=== PATIENT | male | born 1950 | race Caucasian/White ===

== ENCOUNTER 2017-05-09 07:41 | Emergency (ER) | payer MEDICARE ==
[~2017-05-09] VITALS: Ht 185.4 cm; Wt 79.0 kg
[~2017-05-09 07:41] MED LIST: DIAZIDE; LISI-167; OXYC-302
[2017-05-09] MEDS ORDERED: SODIUM CHLORIDE 0.9% 1,000ML IVBOLUS ONE (08:00)
[2017-05-09] MEDS ORDERED: TRIA1CAP PO (08:11)
[2017-05-09] MEDS ORDERED: LISI5TAB7 PO (08:11)
[2017-05-09] MEDS ORDERED: LANS30CA PO (08:11)
[2017-05-09 08:16] LABS: BASOPHILS # (AUTO) 0.01 x10^3/uL (0-0.1); BASOPHILS % (AUTO) 0 % (0-1); EOSINOPHILS # (AUTO) 0.09 x10^3/uL (0-0.4); EOSINOPHILS % (AUTO) 2 % (1-7); LYMPHOCYTES # (AUTO) 0.95 x10^3/uL (1-3.4); LYMPHOCYTES % (AUTO) 17 % (22-44); MD NO; MEAN CORPUSCULAR HEMOGLOBIN 35.9 pg (27.5-34.5); MEAN CORPUSCULAR HGB CONC 34.5 g/dL (33.2-36.2); MEAN CORPUSCULAR VOLUME 103.9 fL (81-97); MEAN PLATELET VOLUME 7.6 fL (7.4-10.4); MONOCYTES # (AUTO) 0.35 x10^3/uL (0.2-0.8); MONOCYTES % (AUTO) 6 % (2-9); NEUTROPHILS # (AUTO) 4.22 x10^3/uL (1.8-6.8); NEUTROPHILS % (AUTO) 75 % (42-75); PLATELET COUNT 223 x10^3/uL (130-400); RED BLOOD COUNT 4.25 x10^6/uL (4.38-5.82); RED CELL DISTRIBUTION WIDTH 13.3 % (9.4-14.8)
[2017-05-09 08:26] LABS: ALANINE AMINOTRANSFERASE 29 U/L (12-78); ALBUMIN 3.8 g/dL (3.4-5.0); ANION GAP 9 mmol/L (5-15); CALCIUM 8.8 mg/dL (8.5-10.1); CHLORIDE 107 mmol/L (98-107); CREATININE 1.33 mg/dL (0.7-1.3)
[2017-05-09 08:30] LABS: ALKALINE PHOSPHATASE 38 U/L (45-117); BILIRUBIN,TOTAL 0.5 mg/dL (0.2-1.0); TOTAL PROTEIN 6.5 g/dL (6.4-8.2); TROPONIN I < 0.015 ng/mL (0.000-0.045)
[2017-05-09] MEDS ORDERED: propanolol PO (08:58)
[2017-05-09] MEDS ORDERED: GADOBUTROL 7.5 MMOL/7.5 ML PFS ONE (09:48)
[2017-05-09 12:32] VITALS: BP 176/106
[2017-05-09] MEDS ORDERED: PROP10TA PO (12:43)
[2017-05-09 12:54] LABS: MICROSCOPIC AUTO
[2017-05-09 12:55] LABS: CULTURE INDICATED? NO
[2017-05-09] MEDS ORDERED: LEVETIRACETAM 1,000 MG in SODIUM CHLORIDE 0.9% 100 ML IV ONE (13:00)
== END 2017-05-09 13:17 | disposition home or self-care (01) ==
LOC: ED 10:30
DX: G40.909 Epilepsy, unspecified, not intractable, without status epilepticus (principal); G37.9 Demyelinating disease of central nervous system, unspecified; I10 Essential (primary) hypertension; I48.91 Unspecified atrial fibrillation
CPT/HCPCS: 36415; 70450; 70553; 80053; 81001; 82140; 84443; 84484; 85025; 93005; 96361; 96374; 99285; A9585; J1953; J7030

== ENCOUNTER → 2017-06-20 | Outpatient (CLI) | payer MEDICARE ==
[~2017-06-20] MED LIST changes: +LANS30CA PO; +LISI5TAB7 PO; +PROP10TA PO; +TRIA1CAP PO; +propanolol PO
== END | disposition home or self-care (01) ==
LOC: CARD 09:02
PROVIDERS: ATTEND Psychiatry & Neurology Neurology
DX: G40.209 Localization-related (focal) (partial) symptomatic epilepsy and epileptic syndromes with complex partial seizures, not intractable, without status epilepticus (principal)
CPT/HCPCS: 95819

== ENCOUNTER 2019-06-12 20:07 | Inpatient (IN) | payer MEDICARE ==
[~2019-06-12] VITALS: Ht 185.4 cm; Wt 78.2 kg
[~2019-06-12 20:07] MED LIST changes: -PROP10TA PO; +PROP10TA16 PO
[2019-06-12] MEDS ORDERED: SODIUM CHLORIDE FLUSH 10ML SYR IVF ONE (20:30)
--- NOTE | 2019-06-12 20:52 | NUR ---
PT TO ROOM 38 PER PEDIS. PT STATES "I'M REALLY WORRIED I MIGHT HAVE HAD A TIA TODAY" PT FELL 10 DAYS AGO, FELL ON RIGHT SIDE, THINKS HE BROKE A RIB. LUNGS ARE DIMINISHED BUT CLEAR. PT HAS NOT FELT GOOD SINCE HE FELL. TODAY HE HAS BEEN EXPERIENCING VERTIGO, CARMELITA WHEN TURNING HEAD TO THE RIGHT. PT IS A NIGHTLY DRINKER, AND DOES HAVE SMALL TREMORS. PT IN GOWN, PLACED ON MONITOR, OFFERED BLANKET, GIVEN CALL LIGHT, EKG PERFORMED, LAB AT BEDSIDE FOR DRAW AND CHEST XRAY. REPORT TO JAYME BELTRAN.
[2019-06-12] MEDS ORDERED: ONDANSETRON 2MG/ML, 2ML IVPush ONE (21:00)
[2019-06-12 21:07] LABS: BASOPHILS # (AUTO) 0.02 x10^3/uL (0-0.1); BASOPHILS % (AUTO) 0 % (0-1); EOSINOPHILS # (AUTO) 0.06 x10^3/uL (0-0.4); EOSINOPHILS % (AUTO) 2 % (1-7); LYMPHOCYTES # (AUTO) 0.64 x10^3/uL (1-3.4); LYMPHOCYTES % (AUTO) 17 % (22-44); MD NO; MEAN CORPUSCULAR HEMOGLOBIN 36.6 pg (27.5-34.5); MEAN CORPUSCULAR HGB CONC 34.1 g/dL (33.2-36.2); MEAN CORPUSCULAR VOLUME 107.6 fL (81-97); MEAN PLATELET VOLUME 7.1 fL (7.4-10.4); MONOCYTES # (AUTO) 0.35 x10^3/uL (0.2-0.8); MONOCYTES % (AUTO) 9 % (2-9); NEUTROPHILS # (AUTO) 2.62 x10^3/uL (1.8-6.8); NEUTROPHILS % (AUTO) 71 % (42-75); PLATELET COUNT 167 x10^3/uL (130-400); RED CELL DISTRIBUTION WIDTH 13.7 % (9.4-14.8)
[2019-06-12] MEDS ORDERED: ONDANSETRON 2MG/ML, 2ML ONE (21:11)
--- NOTE | 2019-06-12 21:18 | NUR ---
pT MEDICATED PER EMAR, PIV STARTED AND CT NOTIFIED.
[2019-06-12 21:19] LABS: ALANINE AMINOTRANSFERASE 101 U/L (12-78); ANION GAP 10 mmol/L (5-15); CALCIUM 9.6 mg/dL (8.5-10.1); CHLORIDE 98 mmol/L (98-107); CREATININE 1.48 mg/dL (0.7-1.3)
[2019-06-12 21:23] LABS: ALKALINE PHOSPHATASE 58 U/L (45-117); BILIRUBIN,TOTAL 0.5 mg/dL (0.2-1.0); TOTAL PROTEIN 6.9 g/dL (6.4-8.2); TROPONIN I < 0.015 ng/mL (0.000-0.045)
[2019-06-12] MEDS ORDERED: LORazepam 2 MG/ML, 1ML IVPush ONE (21:30)
[2019-06-12] MEDS ORDERED: THIAMINE 100 MG/ML, 2ML IM ONE (21:30)
[2019-06-12] MEDS ORDERED: LORazepam 2 MG/ML, 1ML ONE (22:11)
[2019-06-12] MEDS ORDERED: THIAMINE 100 MG/ML, 2ML ONE (22:12)
--- NOTE | 2019-06-12 22:20 | NUR ---
PT BACK FROM CT, MEDICATED PER EMAR.
[2019-06-12] MEDS ORDERED: OMNIPAQUE 350 MG/ML, 100ML BOTTLE ONE (22:24)
[2019-06-12] MEDS ORDERED: SODIUM CHLORIDE 0.9% 1,000ML IVBOLUS ONE (22:30)
[2019-06-12] MEDS ORDERED: SODIUM CHLORIDE 0.9% 1,000 ML IV SCH (23:27)
[2019-06-12] MEDS ORDERED: ONDANSETRON 2MG/ML, 2ML IVPush PRN (23:30)
[2019-06-12] MEDS ORDERED: ACETAMINOPHEN 325 MG TABLET PO PRN (23:30)
--- NOTE | 2019-06-13 00:09 | NUR ---
PT GIVEN PILLOW FOR COMFORT. PT REPORTING NO NEEDS. VSS.
--- NOTE | 2019-06-13 00:45 | NUR ---
REPORT TO STEPHANIE RN, PT TO ROOM 308
[2019-06-13] MEDS: SODIUM CHLORIDE 0.9% 1,000 ML IV SCH ×2 (01:51→08:10)
[2019-06-13 02:00] VITALS: BP 135/78
[2019-06-13] MEDS ORDERED: LORazepam 2 MG/ML, 1ML IVPush ONE (02:30)
[2019-06-13] MEDS: ASPIRIN 81 MG TABLET EC PO SCH (05:16)
[2019-06-13 05:56] LABS: ALBUMIN 3.4 g/dL (3.4-5.0); ANION GAP 8 mmol/L (5-15); CALCIUM 8.7 mg/dL (8.5-10.1); CHLORIDE 104 mmol/L (98-107)
[2019-06-13 06:00] LABS: BASOPHILS # (AUTO) 0.02 x10^3/uL (0-0.1); BASOPHILS % (AUTO) 1 % (0-1); EOSINOPHILS # (AUTO) 0.11 x10^3/uL (0-0.4); EOSINOPHILS % (AUTO) 3 % (1-7); LYMPHOCYTES # (AUTO) 0.87 x10^3/uL (1-3.4); LYMPHOCYTES % (AUTO) 27 % (22-44); MD NO; MEAN CORPUSCULAR HEMOGLOBIN 37.1 pg (27.5-34.5); MEAN CORPUSCULAR HGB CONC 34.5 g/dL (33.2-36.2); MEAN CORPUSCULAR VOLUME 107.5 fL (81-97); MEAN PLATELET VOLUME 7.1 fL (7.4-10.4); MONOCYTES # (AUTO) 0.36 x10^3/uL (0.2-0.8); MONOCYTES % (AUTO) 11 % (2-9); NEUTROPHILS # (AUTO) 1.85 x10^3/uL (1.8-6.8); NEUTROPHILS % (AUTO) 58 % (42-75); PLATELET COUNT 119 x10^3/uL (130-400); RED BLOOD COUNT 3.25 x10^6/uL (4.38-5.82); RED CELL DISTRIBUTION WIDTH 13.6 % (9.4-14.8)
[2019-06-13 06:04] LABS: ALANINE AMINOTRANSFERASE 84 U/L (12-78); ALKALINE PHOSPHATASE 47 U/L (45-117); BILIRUBIN, DIRECT 0.3 mg/dL (0.1-0.2); BILIRUBIN,INDIRECT 0.4 mg/dL (0.0-2.0); BILIRUBIN,TOTAL 0.7 mg/dL (0.2-1.0); TOTAL PROTEIN 6.1 g/dL (6.4-8.2); TROPONIN I < 0.015 ng/mL (0.000-0.045)
[2019-06-13] MEDS: PROPRANOLOL 10 MG TABLET PO SCH (08:09)
[2019-06-13] MEDS: LEVETIRACETAM 500 MG TABLET PO SCH ×2 (08:09→19:36)
[2019-06-13 08:20] VITALS: BP 157/94
[2019-06-13 12:29] VITALS: BP 130/93
[2019-06-13 19:56] VITALS: BP 160/94
[2019-06-13 19:59] VITALS: BP 154/98
[2019-06-13] MEDS ORDERED: SODIUM CHLORIDE 0.9% 1,000 ML IV SCH (23:27)
[2019-06-14] VITALS (9 sets, daily range): BP systolic 139–161; BP diastolic 84–115
[2019-06-14] MEDS: LORazepam 2 MG/ML, 1ML IVPush PRN ×2 (00:27→20:21)
[2019-06-14] MEDS: hydrALAzine 20 MG/ML, 1ML IVPush PRN ×2 (00:36→12:59)
[2019-06-14 05:51] LABS: BASOPHILS # (AUTO) 0.02 x10^3/uL (0-0.1); BASOPHILS % (AUTO) 1 % (0-1); EOSINOPHILS # (AUTO) 0.11 x10^3/uL (0-0.4); EOSINOPHILS % (AUTO) 3 % (1-7); LYMPHOCYTES # (AUTO) 0.78 x10^3/uL (1-3.4); LYMPHOCYTES % (AUTO) 25 % (22-44); MD NO; MEAN CORPUSCULAR HEMOGLOBIN 36.9 pg (27.5-34.5); MEAN CORPUSCULAR HGB CONC 34.3 g/dL (33.2-36.2); MEAN CORPUSCULAR VOLUME 107.6 fL (81-97); MEAN PLATELET VOLUME 7.5 fL (7.4-10.4); MONOCYTES # (AUTO) 0.33 x10^3/uL (0.2-0.8); MONOCYTES % (AUTO) 11 % (2-9); NEUTROPHILS # (AUTO) 1.91 x10^3/uL (1.8-6.8); NEUTROPHILS % (AUTO) 61 % (42-75); PLATELET COUNT 119 x10^3/uL (130-400); RED BLOOD COUNT 3.35 x10^6/uL (4.38-5.82); RED CELL DISTRIBUTION WIDTH 13.6 % (9.4-14.8)
[2019-06-14 05:53] LABS: ANION GAP 6 mmol/L (5-15); CALCIUM 9.3 mg/dL (8.5-10.1); CHLORIDE 105 mmol/L (98-107); CREATININE 1.26 mg/dL (0.7-1.3)
[2019-06-14] MEDS: ASPIRIN 81 MG TABLET EC PO SCH (06:03)
[2019-06-14] MEDS: LEVETIRACETAM 500 MG TABLET PO SCH ×2 (08:54→20:21)
[2019-06-14] MEDS: PROPRANOLOL 10 MG TABLET PO SCH (08:54)
[2019-06-14] MEDS ORDERED: AMLODIPINE 5 MG TABLET PO SCH (09:00)
[2019-06-15 01:45] VITALS: BP 144/91
[2019-06-15] MEDS: ASPIRIN 81 MG TABLET EC PO SCH (05:12)
[2019-06-15 05:18] LABS: ANION GAP 7 mmol/L (5-15); CALCIUM 8.8 mg/dL (8.5-10.1); CHLORIDE 109 mmol/L (98-107); CREATININE 1.25 mg/dL (0.7-1.3)
[2019-06-15] MEDS ORDERED: POTASSIUM CHLORIDE 20 MEQ TAB.ER.PRT PO ONE (07:00)
[2019-06-15 07:17] LABS: ALBUMIN 3.4 g/dL (3.4-5.0); BILIRUBIN, DIRECT 0.2 mg/dL (0.1-0.2)
[2019-06-15 07:21] LABS: BILIRUBIN,INDIRECT 0.5 mg/dL (0.0-2.0); BILIRUBIN,TOTAL 0.7 mg/dL (0.2-1.0); TOTAL PROTEIN 6.4 g/dL (6.4-8.2)
[2019-06-15 07:40] VITALS: BP 151/97
[2019-06-15] MEDS: PROPRANOLOL 10 MG TABLET PO SCH (08:40)
[2019-06-15] MEDS: LEVETIRACETAM 500 MG TABLET PO SCH (08:40)
[2019-06-15] MEDS ORDERED: TRIAMTERENE-HCTZ 37.5/25 MG TABLET PO SCH (09:00)
[2019-06-15] MEDS ORDERED: LISINOPRIL 20 MG TABLET PO SCH (09:00)
== END 2019-06-15 15:25 | disposition home or self-care (01) | DRG 439 ==
LOC: ED 21:11 → EDIP 22:56 → 3WST 06-13 01:01
PROVIDERS: ADMIT Internal Medicine; ATTEND Hospitalist
DX: K85.20 Alcohol induced acute pancreatitis without necrosis or infection (principal); G37.9 Demyelinating disease of central nervous system, unspecified; F10.231 Alcohol dependence with withdrawal delirium; N17.9 Acute kidney failure, unspecified; D61.818 Other pancytopenia; H81.10 Benign paroxysmal vertigo, unspecified ear; G40.409 Other generalized epilepsy and epileptic syndromes, not intractable, without status epilepticus; D72.810 Lymphocytopenia; I48.91 Unspecified atrial fibrillation; Z03.818 Encounter for observation for suspected exposure to other biological agents ruled out; E78.5 Hyperlipidemia, unspecified; G25.0 Essential tremor; I10 Essential (primary) hypertension; R55 Syncope and collapse; R05 Cough; R50.9 Fever, unspecified; Z90.5 Acquired absence of kidney; Z79.899 Other long term (current) drug therapy
CPT/HCPCS: 36415; 70450; 70496; 70498; 70551; 71045; 80048; 80053; 80076; 80177; 80307; 82607; 83036; 83605; 83690; 83735; 83880; 84145; 84443; 84484; 85025; 87040; 93005; 93306; 96374; 99285; G0378; J2405; J3411; Q9967; J0360; J2060; J7030